=== PATIENT | female | born 2000 | race Two or more races ===

== ENCOUNTER 2019-11-23 09:42 | Emergency (ER) | payer OTHER ==
[~2019-11-23] VITALS: Ht 162.6 cm; Wt 59.4 kg
--- NOTE | 2019-11-23 09:47 | NUR ---
PATIENT STATED "FOUL ODOR FROM URINE/VAGINA x COUPLE OF DAYS, WORSEN LAST NIGHT." ALSO C/O BURNING SENSATION WHEN URINATING AND LOWER BACK PAIN. TO ER BED 16, HOOKED TO MONITOR, CHANGED TO HOSP GOWN, PROVIDED W WARM BLANKET, PARTIENT AOx4 , BREATHING EVEN AND UNLABORED, DR GOULD AT BEDSIDE
--- NOTE | 2019-11-23 10:04 | NUR ---
CHAPERONED DR GOULD FOR PELVIC EXAM
[2019-11-23 10:09] LABS: APPEARANCE,URINE Cloudy (CLEAR); BILIRUBIN,URINE MODERATE (NEGATIVE); BLOOD, URINE Moderate Ery/uL (NEGATIVE); KETONES,URINE 15 (NEGATIVE); LEUKOCYTE ESTERASE ,URINE Large (NEGATIVE); NITRITE, URINE Positive (NEGATIVE); PROTEIN,URINE >=300 mg/dl (NEGATIVE); UGLUCOSE 100 MG/DL mg/dL (NEGATIVE)
--- NOTE | 2019-11-23 10:09 | NUR ---
[facility] SENT TO LAB
[2019-11-23 10:10] LABS: COLOR,URINE Dark Yellow (YELLOW)
[2019-11-23 10:16] LABS: BACTERIA,URINE Moderate /HPF (None Seen); RBC,URINE 20-50 /HPF (0-2); SQUAMOUS EPITHELIAL CELL,UR Few /HPF (None Seen); WBC,URINE 80-100 /HPF (0-3)
[2019-11-23 10:48] VITALS: BP 114/71
--- NOTE | 2019-11-23 10:48 | NUR ---
Patient discharged to home in stable condition. Written and verbal after care instructions given. Patient verbalizes understanding of instruction.
== END 2019-11-23 10:49 | disposition home or self-care (01) ==
LOC: ER 09:42
DX: N39.0 Urinary tract infection, site not specified (principal); N76.0 Acute vaginitis
CPT/HCPCS: 81001; 84703; 87086; 87110; 87491; 87591; 99283; A6403; 81000-TC